=== PATIENT | female | born 1965 | race American Indian/Alaskan Native ===

== ENCOUNTER 2019-01-04 09:46 | Outpatient (CLI) | payer MEDICAID ==
--- NOTE | 2019-01-04 11:25 | Magnetic Resonance Report ---
MRI LEFT SHOULDER WITHOUT CONTRAST INDICATION / CLINICAL INFORMATION: ROTATOR CUFF TENDONITIS/LEFT. Left shoulder pain COMPARISON: None at this facility TECHNIQUE: Multisequence, multiplanar images were obtained. FINDINGS: SUPRASPINATUS: A focal full-thickness tear is identified in the distal anterior supraspinatus tendon measuring up to 7 mm in diameter on coronal T2 fat sat image 8. This appears to extend to the rotator cuff interval. INFRASPINATUS: No significant abnormality. SUBSCAPULARIS: Focal full-thickness tear is suspected in the superior fibers of the distal supraspina tus tendon. BICEPS TENDON, LONG HEAD: There is mild thickening and increased intrinsic signal in the intra-articu lar person of the lung into the biceps tendon consistent with advanced tendinopathy or possibly a zulma gitudinal tear. GLENOID LABRUM: No obvious abnormality although arthrogram was not performed. No gross labral tear or separation. ARTICULAR CARTILAGE: No significant abnormality. JOINT SPACE AND CAPSULE: Small joint effusion and small fluid in the subacromial and subdeltoid bursa is noted. ACROMION and A.C. JOINT: Mild to moderate osteoarthritic changes are identified at the AC joint. Smal l acromial spur. Impingement could be considered. SUBACROMIAL/SUBDELTOID SPACE: Trace fluid BONES: No significant bone marrow edema. No fracture. No osseous lesion. SUBCUTANEOUS SOFT TISSUES: No significant abnormality. ADDITIONAL FINDINGS: None. IMPRESSION: Focal full-thickness tear in the distal, anterior supraspinatus tendon as described. Probable partial tear of the superior fibers of the subscapularis tendon. There is thickening and increased signal of the intra-articular portion of the long head of the bicep s tendon consistent with tendinosis or longitudinal tear. No SLAP lesion. Joint effusion and bursal fluid. Mild to moderate acromioclavicular osteoarthritis. Signer Name: Mani Winkler Jr, MD Signed: 01/04/2019 11:20 AM Workstation Name: [id number]
== END 2019-01-04 09:47 | disposition home or self-care (01) ==
LOC: SPVIMAG 09:46
PROVIDERS: ATTEND Orthopaedic Surgery
DX: M75.82 Other shoulder lesions, left shoulder (principal)